=== PATIENT | female | born 2000 ===

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

== ENCOUNTER 2018-05-18 13:35 | Emergency (ER) | payer MEDICAID ==
[2018-05-18 14:08] VITALS: BMI 27.6
[2018-05-18 14:50] LABS: SQUAMOUS EPITHIAL 15 /hpf (0-5); URINE BACTERIA RARE (<OCC); URINE BILIRUBIN NEGATIVE (NEGATIVE); URINE BLOOD MODERATE (NEGATIVE); URINE CLARITY CLOUDY (Clear); URINE COLOR YELLOW (YELLOW); URINE GLUCOSE (UA) NEG (Normal); URINE LEUKOCYTE ESTERASE LARGE Leu/uL (Negative); URINE PROTEIN NEGATIVE (NEGATIVE); URINE UROBILINOGEN 0.2-1.0 mg/dL (0.2-1.0)
[2018-05-18 20:57] VITALS: BP 106/68; PULSE 81; RESP 18; TEMP 98.1
--- NOTE | 2018-05-19 08:34 | OBDCSUM ---
Datetime: 05/18/2018 16:15 Discharge Diagnosis Prov Other: Hematuiria/ UTI
--- NOTE | 2018-05-19 08:34 | OBHP ---
Datetime: 05/18/2018 14:04 IP Adm Impression: , intrauterine ; No Active Labor; Intact Membranes IP Chief Complaint Other: Blood in the Urine IP Admit Plan: Observation/Evaluation Admit Comment, IP Provider: Pt is a 17 yo F IUP @ 29.1 weeks based on LMP of 10/26/17. Pt state s this morning she started having blood in the urine. She noticed specks of blood on the tissue. No h x of hemmorhoids. Denies contractions, LOF. Reports good movement. 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 Lungs: clear to auscultation bilaterally, no wheezing, rales, rhonchi Abdomen: gravid LE: negative for edema -Speculum exam- no vaginal bleeding, no cervical dilation A_P: Pt is a 17 yo F IUP @ 29.1 weeks based on LMP of 10/26/17. Pt states this morning she started having blood in the urine. -Observe in OB ED -Monitor Heart rate -Urinalysis- Large LE, WBC's 11, moderate blood, 12 RBC's -Urine Cx ordered -Cephalexin 500mg 1 tab po TID 7 days # 21 Case discussed with Attending -Lizeth Yao PGY-1 OB Hospitalist note. with PGY1, I saw this patient. Agree with note. MAHNDO Pelvic Type - PN: Adequate Extremities - PN: Normal Abdomen - PN: Normal Back - PN: Not Done Breast - PN: Not Done Lungs - PN: Normal Heart - PN: Normal Thyroid - PN: Not Done Neurologic - PN: Normal HEENT - PN: Normal General - PN: Normal FHR - Baseline A Provider: 150s Membranes, Provider: Intact Pool Provider: Negative IP Hx Assessment: The History has been Reviewed and is Current Vital Signs Provider: Reviewed; Within Normal Limits IP Chief Complaint: Other NICHD Variability Prov Fetus A: Moderate 6-25bpm NICHD Accel Fetus A IP Provider: 10X10 FHR Category Provider Fetus A: Category I NICHD Decel Fetus A IP Provider: None Dilatation, Provider: 0 Genitourinary Exam: Normal DTRs - PN: Not Done
== END 2018-05-18 16:15 | disposition home or self-care (01) ==
LOC: H.EROB2 13:35
DX: O26.92 Pregnancy related conditions, unspecified, second trimester (principal); R31.9 Hematuria, unspecified; Z3A.29 29 weeks gestation of pregnancy

== ENCOUNTER 2018-07-22 18:27 | Emergency (ER) | payer MEDICAID ==
[2018-07-22 19:03] VITALS: BMI 33.3
[2018-07-22 19:45] LABS: BASO % 0.1 % (0.0-2.0); EOS # 0.1 K/uL (0.0-0.7); EOS % 1.2 % (0.0-4.0); HEMOGLOBIN 11.5 g/dL (12.0-16.0); LYMPH % 13.8 % (20.0-40.0); MEAN CELL VOLUME 89.8 fl (81.0-99.0); MEAN CORPUSCULAR HEMOGLOBIN 30.5 pg (27.0-31.0); MEAN PLATELET VOLUME 13.1 fl (7.2-11.7); MONO # 0.5 K/uL (0.0-0.8); MONO % 7.2 % (0.0-10.0); NEUT # 5.7 K/uL (1.8-7.0); NEUT % 77.7 % (50.0-75.0); NRBC % 0.2 % (0.0-0.0); RBC 3.78 Mil/uL (3.80-5.20); RED CELL DISTRIBUTION WIDTH 13.7 % (11.5-14.5); WHITE BLOOD COUNT 7.3 K/uL (4.8-10.8)
[2018-07-22 19:51] LABS: ALB/GLOB RATIO 1.1 (1.0-2.1); ALBUMIN 3.5 g/dL (3.5-5.0); ALT/SGPT 26 U/L (9-52); AST/SGOT 19 U/L (14-36); BLOOD UREA NITROGEN 5 mg/dl (7-17); CALCIUM 9.1 mg/dL (8.4-10.2); GFR NON-AFRICAN AMERICAN > 60; URIC ACID 2.2 mg/Dl (2.2-7.5)
[2018-07-22 19:57] LABS: SQUAMOUS EPITHIAL 33 /hpf (0-5); URINE AMORPHOUS SEDIMENT OCC /ul (<OCC); URINE BACTERIA OCC (<OCC); URINE BILIRUBIN NEGATIVE (NEGATIVE); URINE BLOOD MODERATE (NEGATIVE); URINE CLARITY CLOUDY (Clear); URINE COLOR AMBER (YELLOW); URINE GLUCOSE (UA) NEG (NEGATIVE); URINE LEUKOCYTE ESTERASE MOD Leu/uL (Negative); URINE PROTEIN 30 mg/dL (NEGATIVE); WBC CLUMPS MOD /hpf
[2018-07-23 01:46] VITALS: BP 122/70; PULSE 88; RESP 18; TEMP 98.1; O2SAT 100
== END 2018-07-22 20:50 | disposition home or self-care (01) ==
LOC: H.EROB2 18:27
DX: O14.13 Severe pre-eclampsia, third trimester (principal); Z3A.38 38 weeks gestation of pregnancy

== ENCOUNTER 2018-07-27 14:23 | Emergency (ER) | payer MEDICAID ==
[2018-07-27 12:57] VITALS: BMI 33.3
[2018-07-27 20:26] VITALS: BP 126/74; PULSE 97; TEMP 98.8; O2SAT 100
--- NOTE | 2018-07-28 08:02 | OBDCSUM ---
Datetime: 07/27/2018 14:47 Discharge Diagnosis, Provider: False Labor - Undelivered
--- NOTE | 2018-07-28 08:02 | OBHP ---
Datetime: 07/27/2018 14:30 IP Adm Impression: Term, intrauterine ; No Active Labor IP Admit Plan: Observation/Evaluation; Discharge home Admit Comment, IP Provider: 18 y/o female w/ hx of gestational thrombocytopenia , 39.1 wks based on LMP presents to [facility] w/ c/o vaginal bleeding (menses-like) that began at 12PM today. She noticed bright red blood when wiping after using the bathroom. Patient denies LOF and CTX. Endorses mov ements. States she has not been sexually active in the last 24 hours. Denies headache, dizzienss, N/V /D/CP/SOB/Le edema/urinart symptoms. : CFH PMHx: ADHD, gestational thrombocytopenia, hx of chlamydia PSHx: Upper GI endoscopy Allergies: Kiwi-anaphylaxis, NKDA F/H: Noncontributory SocialHx: Previous H/O alcohol use, Deneis since . Denies smoking/Drugs Physical Exam: General: sitting comfortable in bed, NAD Chest: S1S2 present, RRR Lungs: CTAB Abdomen: soft, NT, gravid Extremities: No pedal edema/calf tenderness SVE: (chaperoned by Dr. Rolon) FT/1cm cervical dilatation. No signs of active bleeding. Assessment and Plan: 18 y/o , 39.1 wks IUP U/S on 06/24 shows placenta in posterior position SVE: FT/1 cm, no signs of active bleeding. No active labor. NST reactive, moderate variabilty, No decels No CTx on toco Patient is stable for discharge to home w/ ER precautions. Patient has f/u appointment scheduled w/ Dr. De Oliveira for next week. OB Hospitalist on-call. With PGY1, i saw and examined this pt. Agree with note. No evidence of VB noted - MAHNDO Pelvic Type - PN: Adequate Extremities - PN: Normal Abdomen - PN: Normal Lungs - PN: Normal Heart - PN: Normal Neurologic - PN: Not Done HEENT - PN: Not Done General - PN: Normal FHR - Baseline A Provider: 150 Contraction Comments Provider: NONE Gestation - Est Wks by US: 39.0 IP Hx Assessment: The History has been Reviewed and is Current EGA AdmitDate IP: 39.1 Vital Signs Provider: Reviewed; Within Normal Limits IP Chief Complaint: Vaginal bleeding NICHD Variability Prov Fetus A: Moderate 6-25bpm NICHD Accel Fetus A IP Provider: 15X15 FHR Category Provider Fetus A: Category I Dilatation, Provider: FT/1cm Genitourinary Exam: Not Done
== END 2018-07-27 15:00 | disposition home or self-care (01) ==
LOC: H.EROB2 14:23
DX: O46.93 Antepartum hemorrhage, unspecified, third trimester (principal); Z3A.39 39 weeks gestation of pregnancy

== ENCOUNTER 2018-08-09 19:34 | Inpatient (IN) | payer MEDICAID ==
[2018-08-09 20:13] VITALS: BMI 34.5
[2018-08-09] MEDS ORDERED: Lactated Ringer's 1,000 ML IV ONE (21:21)
[2018-08-09 22:19] LABS: BASO % 0.2 % (0.0-2.0); EOS # 0.1 K/uL (0.0-0.7); EOS % 0.6 % (0.0-4.0); HEMOGLOBIN 11.6 g/dL (12.0-16.0); LYMPH # 1.3 K/uL (1.0-4.3); LYMPH % 13.4 % (20.0-40.0); MEAN CELL VOLUME 91.1 fl (81.0-99.0); MEAN CORPUSCULAR HEMOGLOBIN 30.6 pg (27.0-31.0); MEAN CORPUSCULAR HGB CONC 33.6 g/dL (33.0-37.0); MEAN PLATELET VOLUME 13.7 fl (7.2-11.7); MONO # 0.7 K/uL (0.0-0.8); NEUT # 7.8 K/uL (1.8-7.0); NEUT % 78.8 % (50.0-75.0); NRBC % 0.1 % (0.0-0.0); RBC 3.8 Mil/uL (3.80-5.20); RED CELL DISTRIBUTION WIDTH 13.5 % (11.5-14.5); WHITE BLOOD COUNT 9.9 K/uL (4.8-10.8)
[2018-08-10] MEDS ORDERED: Albuterol-Ipratrop 3 mg / 0.5 (3 ml) UD ONE ×2 (02:07→03:08)
[2018-08-10] MEDS: Lactated Ringer's 1,000 ML IV SCH ×3 (08:40→22:57)
--- NOTE | 2018-08-10 09:01 | OBADHP ---
Datetime: 08/09/2018 21:02 Admit Comment, IP Provider: 18 y/o female w/ hx of gestational thrombocytopenia , 41.0 wks based on LMP presents to L_D for IOL. Patient denies LOF, VB. Reports irregualr CTx Q5-10 mins. Endorses f etal movements. Denies headache, dizzienss, N/V/D/CP/SOB/Le edema/urinart symptoms. : [facility], Dr. Lopez PMHx: ADHD, gestational thrombocytopenia, hx of chlamydia(Treated) PSHx: Upper GI endoscopy Allergies: Kiwi-anaphylaxis, NKDA F/H: Noncontributory SocialHx: Previous H/O alcohol use, Deneis since . Denies smoking/Drugs Physical Exam: General: sitting comfortable in bed, NAD Chest: S1S2 present, RRR Lungs: CTAB Abdomen: soft, NT, gravid Extremities: No pedal edema/calf tenderness SVE: (chaperoned by Carmen) 1cm/long/high. No signs of active bleeding. Assessment and Plan: 18 y/o , 41.0 wks IUP admitted for IOL SVE: 1 cm/long/, no signs of active bleeding. No active labor. NST reactive, moderate variabilty, No decels No CTx on toco Cytotec 25 mg followed by 50 mg Q4hr untill CTx are 2-3 mins apart or active labor LR 999 and 125 ml/hr Anesthesia consult Monitor for cervical changes. Case discussed with Dr. Gonzales Adames, PGY1 OB Hospitalist application coordinator. Pt seen and examined by me. Agree with note. Condition, IOL, labor, pain management, delivey and post discussed. Her questoins answered. MAHNDO Pelvic Type - PN: Not Done Extremities - PN: Normal Abdomen - PN: Normal Back - PN: Normal Breast - PN: Normal Lungs - PN: Normal Heart - PN: Normal Thyroid - PN: Not Done Neurologic - PN: Normal HEENT - PN: Normal General - PN: Normal Presentation-Admit: Vertex FHR - Baseline A Provider: 130 Membranes, Provider: Intact Contraction Comments Provider: None IP Hx Assessment: The History has been Reviewed and is Current Vital Signs Provider: Reviewed; Within Normal Limits IP Chief Complaint: Scheduled induction of labor NICHD Variability Prov Fetus A: Moderate 6-25bpm NICHD Accel Fetus A IP Provider: 15X15 FHR Category Provider Fetus A: Category I NICHD Decel Fetus A IP Provider: None Dilatation, Provider: 1 Effacement, Provider: long Station, Provider: high Genitourinary Exam: Normal DTRs - PN: Not Done EGA AdmitDate IP: 41.0 IP Adm Impression: Term, intrauterine ; No Active Labor; Intact Membranes IP Admit Plan: Admit to unit; Initiate labor induction protocol Datetime: 07/27/2018 14:30 Gestation - Est Wks by US: 39.0 Datetime: 05/18/2018 14:04 IP Chief Complaint Other: Blood in the Urine Pool Provider: Negative
--- NOTE | 2018-08-10 11:36 | OBPN ---
Datetime: 08/10/2018 09:51 IP Progress Impression: Normal progression of labor IP Procedures: Sterile Vag Exam IP Progress Plan: Continue present management FHR - Baseline A Provider: 150 Gestation - Est Wks by US: 41.1 IP Progress Note Comment: S: Patient complaining of ctx pain 7-8/10 in severity. Endorses move ments. No other complaints at this time. O: SVE (Chaperoned by Nurse Joanne): /-2 A :18 y/o female , 41.1 wks IUP admitted for IOL c/o pain P: Discussed R/B/A of pain management at this time. Patient opted for Nitrous Oxide. Will order. C ont present management Case discussed w/ Dr. Debby Batres, pgyi Addendum by Dr. Guardado: I have evaluated the patient independently and I agree with the above. The patient was examined again by myself, 1-2/thick/high. Patient was using the Nitrous oxide for pain ma nagement. FHR = 150 mod fátima, +accels, no decels. TOCO = ctnxing q 2-5 mins. Continue augmentation wit h cytotec. CEFM and TOCO - re-evaluate as needed Vital Signs Provider: Reviewed; Within Normal Limits NICHD Variability Prov Fetus A: Moderate 6-25bpm Dilatation, Provider: 2 Effacement, Provider: 50 Station, Provider: -2 NICHD Decel Fetus A IP Provider: None Datetime: 08/09/2018 21:02 Membranes, Provider: Intact Contraction Comments Provider: None Presentation-Admit: Vertex NICHD Accel Fetus A IP Provider: 15X15 FHR Category Provider Fetus A: Category I Datetime: 05/18/2018 14:04 Pool Provider: Negative
[2018-08-10] MEDS ORDERED: Oxytocin 30 UNIT 30 UNITS/500 ML BAG IV ONE ×2 (17:40→20:15)
--- NOTE | 2018-08-10 17:58 | OBPN ---
Datetime: 08/10/2018 17:30 IP Informed Consent Obtain: Vaginal Delivery IP Procedures: Sterile Vag Exam IP Progress Plan: Continue present management Contraction Comments Provider: q 2 - 3 mins FHR - Baseline A Provider: 145 IP Progress Note Comment: Patient evaluated, feeling increased pain with contractions. Patient offer ed all pain management options, desires to continue with nitrous oxide now. VE = 1-2/50/-2, Cooks balloon placed, 80mL/80mL FHR = 145 mod fátima, no accels, no decls TOCO = dario q 2-4 mins A/P 1. Cooks balloon placed successfully. Will start Pitocin for augmentation 2. Patient to continue nitrous oxide at this point for pain management 3. CEFM and TOCO NICHD Accel Fetus A IP Provider: 15X15 NICHD Variability Prov Fetus A: Moderate 6-25bpm Dilatation, Provider: 1-2 Effacement, Provider: 50 Station, Provider: -2
--- NOTE | 2018-08-10 19:53 | OBPN ---
Datetime: 08/10/2018 19:30 IP Progress Impression: Normal progression of labor IP Informed Consent Obtain: Vaginal Delivery IP Procedures: Sterile Vag Exam IP Progress Plan: Continue present management Membranes, Provider: Ruptured Contraction Comments Provider: q 2 - 3 mins FHR - Baseline A Provider: 150 IP Progress Note Comment: Patient evaluated, Cooks balloon reduced, AROM, blood tinged VE = 5-6/50/-2, AROM FHR = 150 mod fátima, +accels, early decelerations, some variables TOCO = ctxning q 2-4 mins A/p 1. Continue augmentation with pitocin 2. Patient offered other pain management and declined at this poitn 3. CEFM and TOCO Vital Signs Provider: Reviewed; Within Normal Limits NICHD Variability Prov Fetus A: Moderate 6-25bpm Dilatation, Provider: 5-6 Effacement, Provider: 50 Station, Provider: -2 NICHD Decel Fetus A IP Provider: Early; Variable
[2018-08-10] MEDS ORDERED: OXYTOCIN/0.9 % NS 20 UNIT/1,000 ML BAG IV ONE (20:15)
--- NOTE | 2018-08-10 20:46 | OBPN ---
Datetime: 08/10/2018 20:41 IP Informed Consent Obtain: Vaginal Delivery IP Procedures: Sterile Vag Exam; Amnio Infusion Contraction Comments Provider: q 2-3 mins FHR - Baseline A Provider: 150 IP Progress Note Comment: Patient feeling increased pain - offered epidural and anesthesia was prese nt to answer questions. patient again refused pain medication VE=5-6/50/-2 FHR = 150 mod fátima, +repetative variables TOCO = q 2 mins A/P 1. Amnioinfusion was started for Cat-2 tracing. 2. Patient does not want pain medication at this time 3. CEFM and TOCO Vital Signs Provider: Reviewed; Within Normal Limits NICHD Variability Prov Fetus A: Moderate 6-25bpm Dilatation, Provider: 5-6 Effacement, Provider: 50 Station, Provider: -2 NICHD Decel Fetus A IP Provider: Variable
[2018-08-10] MEDS ORDERED: Fentanyl/Bupivacaine HCl 250 ML EPI ONE (20:54)
--- NOTE | 2018-08-10 21:47 | OBPN ---
Datetime: 08/10/2018 21:44 IP Informed Consent Obtain: Vaginal Delivery IP Procedures: Sterile Vag Exam; Epidural Placement IP Progress Plan: Continue present management Contraction Comments Provider: q 2mins FHR - Baseline A Provider: 150 IP Progress Note Comment: Patient evaluated, feeling increased pain with contractions, epidural plac ed and patient feeling much better VE=/-1 FHR = 150 mod fátima, no accels, variables with contractions TOCO = ctxning q 2 mins A/P 1. Patient s/p epidural and feeling much more comfortable 2. Amnioinfusion started for variables, will continue to watch for worsening Cat-2 tracing or for protracted/arrest of labor 3. CEFM and TOCO Vital Signs Provider: Reviewed; Within Normal Limits NICHD Variability Prov Fetus A: Moderate 6-25bpm Dilatation, Provider: 6 Effacement, Provider: 50 Station, Provider: -1 NICHD Decel Fetus A IP Provider: Variable
--- NOTE | 2018-08-10 23:05 | OBPN ---
Datetime: 08/10/2018 23:01 IP Procedures: Sterile Vag Exam Membranes, Provider: Ruptured FHR - Baseline A Provider: 150 IP Progress Note Comment: Patient evaluated, discussed plan of care with patient. Patient has had on /off moderate variability with variables that are at lowest 60 bpm with return to baseline and small variables. Patient has had consistant moderate variability and after variable a return to baseline. P atient continues to be rescucitated, lateral position, O2 mask and 2 doses of terbutaline. TOCO = ctx ing q 2 - 5 mins. discussed with patient if cat-2 tracing continues or worsens, or unable to restart Pitocin secondary to non-reassuring status, will advise . Consent reviewed and signed with p atient. Will continue to CEFM and TOCO. All questions answered Vital Signs Provider: Reviewed; Within Normal Limits NICHBlaine Variability Prov Fetus A: Moderate 6-25bpm Dilatation, Provider: 6 Effacement, Provider: 60 Station, Provider: -1 NICHD Decel Fetus A IP Provider: Variable
[2018-08-10] MEDS ORDERED: ceFAZolin 2 GM in Sodium Chloride 0.9% 100 ML IVPB ONE (23:15)
[2018-08-10] MEDS ORDERED: Azithromycin 500 MG in Sodium Chloride 0.9% 250 ML IVPB STA (23:15)
--- NOTE | 2018-08-10 23:24 | OBPN ---
Datetime: 08/10/2018 23:18 IP Progress Impression: Non-reassuring heart rate IP Informed Consent Obtain: Section Delivery FHR - Baseline A Provider: 150 IP Progress Note Comment: Patient advised to proceed with for non-reassuring status. Zonia martinez continues to have a Cat-2 delivery and has not had an adequate period of rescucitation after 2 dos es of terbutaline and multiple methods of rescucitation. Patient advised to proceed with samson. Patient on the phone with FOB and currently refusing . Discussed with patient that f or optimum outcome with current heart rate status, is advised. Awaiting patient decision. A zithromycin and Ancef given, anesthesia notified Vital Signs Provider: Reviewed; Within Normal Limits NICHD Variability Prov Fetus A: Moderate 6-25bpm Dilatation, Provider: 6 Effacement, Provider: 60 Station, Provider: -1 NICHD Decel Fetus A IP Provider: Variable
[2018-08-10] MEDS ORDERED: Lidocaine 2% PF (10 ml) Amp ONE (23:39)
[2018-08-10] MEDS ORDERED: Propofol 10 mg/ml Inj (20 ML) ONE (23:51)
[2018-08-11] MEDS ORDERED: Morphine 1 mg/ml preservative-free Inj(Duramorph) ONE (00:06)
[2018-08-11] MEDS ORDERED: Oxycodone/Acetaminophen 5/325 mg Tab PO PRN ×3 (00:29→03:43)
--- NOTE | 2018-08-11 00:37 | OBDS ---
MATERNAL INFORMATION Provider Comments: Surgeon: Dr. Guardado Butcher: Dr. Zacarias Lucero PGY-1 Pre-op Dx: Cat-2 tracing, mod fátima with deep variables remote from delivery and not improving with rescucitation Surgery: LTCS Post-op: same Findings: live male infant, 6lbs 13 oz, cephalic, 9/9, grossly nml tubes/ovaries/placenta/uterus Anesthesia: epidural by dr. Perez UO: 100mL Total Input: 1000mL EBL: 800mL Complications: none Condition: stable Pathology: cord blood, cord ph LABOR SUMMARY EDC: 08/02/2018 00:00 No. Babies in Womb: 1 LABOR INFORMATION Cervical Ripening Agents: Cytotec @ 50 Group B Beta Strep: Negative MEMBRANES Membranes Rupture Method: Artificial Amniotic Fluid Color: Bloody Amniotic Fluid Amount: Small STAGES OF LABOR Stage 3 hrs: 0 Stage 3 min: 1 BABY A INFORMATION Infant Delivery Date/Time: 08/10/2018 23:57 Method of Delivery: Born in Route : No : N/A Forceps: N/A Vacuum Extraction: N/A Shoulder Dystocia : No SHOULDER DYSTOCIA BABY A Infant Delivery Date/Time: 08/10/2018 23:57 PRESENTATION/POSITION BABY A Presentation: Cephalic Cephalic Presentation: Vertex PLACENTA INFORMATION BABY A Placenta Delivery Time : 08/10/2018 23:58 Placenta Method of Delivery: Spontaneous Placenta Status: Delivered SCORES BABY A Heart Rate 1 min: >100 bpm Resp Effort 1 min: Good Cry Reflex Irritability 1 min: Cough or Sneeze or Pulls Away Muscle Tone 1 min: Active Motion Color 1 min: Body [place], Extremities Blue Resuscitation Effort 1 min: Tactile Stimulation SCORE 1 MIN: 9 Heart Rate 5 min: >100 bpm Resp Effort 5 min: Good Cry Reflex Irritability 5 min: Cough or Sneeze or Pulls Away Muscle Tone 5 min: Active Motion Color 5 min: Body [place], Extremities Blue Resuscitation Effort 5 min: N/A SCORE 5 MIN: 9 INFORMATION BABY A Gestational Age at Delivery: 41.0 Gestational Status: Term Infant Outcome : Liveborn Infant Condition : Stable Infant Sex: Male IDENTIFICATION/MEDS BABY A ID Band Number: [id number] WEIGHT/LENGTH BABY A Birthweight (gms): 3095 Infant Weight (lb): 6 Weight (oz): 13 CORD INFORMATION BABY A No. Cord Vessels: 3 Nuchal Cord : Around Neck x1, Loose Cord pH Baby Venous: 7.25 Cord Blood Taken: Yes Infant Suction: Mouth; Nose
[2018-08-11] MEDS ORDERED: DiphenhydrAMINE 50 mg/ml Inj IVP PRN ×2 (00:59→03:43)
[2018-08-11 06:09] LABS: HEMOGLOBIN 10.1 g/dL (12.0-16.0); MEAN CELL VOLUME 90.6 fl (81.0-99.0); MEAN CORPUSCULAR HEMOGLOBIN 30.1 pg (27.0-31.0); MEAN CORPUSCULAR HGB CONC 33.3 g/dL (33.0-37.0); RBC 3.36 Mil/uL (3.80-5.20); RED CELL DISTRIBUTION WIDTH 13.7 % (11.5-14.5); WHITE BLOOD COUNT 13.6 K/uL (4.8-10.8)
--- NOTE | 2018-08-11 08:43 | OP ---
PROCEDURE DATE: 08/11/2018 PREOPERATIVE DIAGNOSIS: Category 2 heart tracing, moderate variability with repetitive variables without improvement despite resuscitation, remote for delivery. POSTOPERATIVE DIAGNOSIS: Category 2 heart tracing, moderate variability with repetitive variables without improvement despite resuscitation, remote for delivery. PROCEDURE: Low transverse section. SURGEON: Diane Guardado MD. BRICKLAYER APPRENTICE: Maverick Tubbs MD, and Dr. Adames, PGY-1. FINDINGS: Live male infant, 6 pounds and 13 ounces, cephalic, clear fluid, 9 and 9 Apgars. Grossly normal tubes, ovaries, placenta, and uterus. Three-vessel cord. ANESTHESIA: Epidural. ANESTHESIOLOGIST: Dr. Perez. URINE OUTPUT: 100 mL. TOTAL FLUID INPUT: 1000 mL. ESTIMATED BLOOD LOSS: 800 mL. COMPLICATIONS: None. CONDITION: Stable. PATHOLOGY SPECIMEN: Cord blood and cord pH. INDICATIONS: This is a 18-year-old G1, P0 at 41 plus weeks who presented to labor and delivery for induction of her post-term. The patient progressed to 6 cm dilated with misoprostol, Perkins bulb, Pitocin and ruptured membranes. After rupture of membranes, the patient presented with a category 2 heart tracing, moderate variability with repetitive deep variables. Amnio infusion was started for a few hours, multiple methods of resuscitation such as oxygen mask, stopping the Pitocin, lateral positioning, and multiple doses of terbutaline were given in efforts to improve heart tracing. There was no improvement in category 2 status, and the patient was remote for delivery, was unable to restart Pitocin for augmentation. At this point, it was advised to the patient to proceed with delivery due to heart status, and being remote for delivery. The patient verbalized understanding. Consent was signed. The patient was advised of risks and benefits of procedure including risk of bleeding, infection, damage to surrounding organs such as bowel, bladder, ureter, and uterus. The patient verbalized understanding and signed informed consent. DESCRIPTION OF PROCEDURE: The patient was taken to the OR. Ancef and azithromycin were given preoperatively and SCDs were placed bilaterally. The patient was prepped and draped in a normal sterile fashion in dorsal supine position with a leftward tilt. Pfannenstiel skin incision was made through the skin and carried through the layer of fascia with skin and the Bovie. The fascia was incised in the midline. The incision was extended laterally with the Bovie. Gamal clamps were used to tent up the inferior aspect of this incision. We dissected off the underlying pyramidalis muscles with the Bovie. In a similar fashion, we tented up the superior aspect of this incision, which we dissected off the underlying rectus abdominis muscles with the Bovie. Muscles were bluntly in the midline. Incision extended superiorly and inferiorly with good visualization of all underlying organs. Bladder blade was inserted. The lower uterine segment was identified. Vesicouterine peritoneum was grasped with pickups and the bladder flap was created with Metzenbaum scissors. The lower uterine segment was incised in a transverse fashion. Uterine cavity was entered. Clear fluid was noted. was delivered in cephalic presentation followed by shoulders and rest of infant atraumatically. Cord was clamped and cut. Infant was handed off to awaiting pediatric team. Mouth and nose were suctioned. Cord pH was obtained. Cord blood was obtained. Placenta was extracted manually. Uterus exteriorized, cleared of all clots. Uterine incision was repaired with an 0 Vicryl stitch and second imbricating layer with an 0 Monocryl stitch. Hysterotomy site appeared to be hemostatic. Uterus was returned to the abdomen. Gutters were cleared of all clots. There was an area in the hysterotomy site that was reinforced with 0 Vicryl stitch and again the incision appeared to be hemostatic. The peritoneum was closed with 2-0 Monocryl. Muscle was reapproximated with the same stitch. Fascia was closed with 0 Vicryl stitch. Subcutaneous fat was reapproximated with plain gut sutures. All bleeders were cauterized with the Bovie. The skin was closed with 4-0 Monocryl. Sponge, lap, and needle counts were correct x4. The patient was taken to recovery room in stable condition. There were no other complications. Dr. Tubbs was present and aided in all aspects of delivery including delivery of infant, retraction, placing sutures, and cutting sutures. Diane Guardado MD
[2018-08-11] MEDS ORDERED: Multivitamin With Minerals Tab PO SCH (09:00)
[2018-08-11] MEDS: Multivitamin With Minerals Tab PO SCH (09:02)
--- NOTE | 2018-08-11 09:57 | OBPPN ---
Datetime: 08/11/2018 07:03 PP Pain Prov: Within normal limits PP Nausea Prov: Denies PP Flatus Prov: No PP BM Prov: No PP Breasts Prov: Not Done PP Heart Prov: Normal PP Lungs Prov: Normal PP Abdomen/Uterus Prov: Normal PP Lochia Prov: Not Done PP Vulva/Perineum Prov: Not Done PP CVA Tenderness Prov: Normal PP Extremities Prov: Normal PP Impression Prov: Normal progression PP Plan Prov: Continue present management; consult PP Progress Note Prov: 18y/o , 41.0 wks S/P on 08/10/18 for Recurrent decels, Category II tracings. POD1 Patient seen and evaluated at bedside. Reports abdominal pain which is well controlled with pain m edications. Perkins and dressing present. Formula feeding. Tolerating regular diet well. Lochia similar to menses. Not passing flatus or having BM. Denies fever, chills, nausea, vomiting, diarrhea, CP, SO B. O: Vitally stable GEN: Patient is comfortable. In no acute distress. Cardio: S1S2, no murmurs, gallops or rubs. Lungs: clear air entry sounds b/l, no wheezing Abdomen: BS+, appropriate TTP. Dressing present. Uterus is firm and at the level of the umbilicus . EXT: No edema, calves non-tender to palpation Assessment/Plan: 18y/o , 41.0 wks S/P on 08/10/18. POD1. Pt remains afebrile, tolerat ing pain with medication, doing well. OOB with caution - SCDs for DVT prophylaxis, encouraged ambulating - Percocet 5/325mg, and Motrin 600mg prn for pain. - Senokot PO HS for constipation - Simethicone 80 mg Q6 hr - Continue to encourage - f/u CBC post op: Pending - Anticipated D/C on 08/13/18 ---Deonte Adames MD PGY-1 --- Génesis PGY 2 Vital Signs Provider PP: Reviewed; Within Normal Limits
[2018-08-11] MEDS: Oxycodone/Acetaminophen 5/325 mg Tab PO PRN ×2 (12:53→19:15)
[2018-08-12] MEDS: Multivitamin With Minerals Tab PO SCH (08:44)
[2018-08-12] MEDS ORDERED: Measles, Mumps, and Rubella 0.5 ML VIAL SC ONE (10:00)
--- NOTE | 2018-08-12 10:17 | OBPPN ---
Datetime: 08/12/2018 06:59 PP Pain Prov: Within normal limits PP Nausea Prov: Denies PP Flatus Prov: Yes PP BM Prov: No PP Breasts Prov: Not Done PP Heart Prov: Normal PP Lungs Prov: Normal PP Abdomen/Uterus Prov: Normal PP Lochia Prov: Not Done PP Vulva/Perineum Prov: Not Done PP CVA Tenderness Prov: Normal PP Extremities Prov: Normal PP C/S Incision Prov: Not Applicable PP Progress Prov: Normal PP Impression Prov: Normal progression PP Plan Prov: Continue present management; consult PP Progress Note Prov: 18y/o , 41.0 wks S/P on 08/10/18 for Recurrent decels, Category II tracings. POD2 Patient seen and evaluated at bedside. Reports abdominal pain which is well controlled with pain m edications. Formula feeding. Tolerating regular diet well. Lochia similar to menses. Passing flatus b ut no BM. Denies fever, chills, nausea, vomiting, diarrhea, CP, SOB. O: Vitally stable GEN: Patient is comfortable. In no acute distress. Cardio: S1S2, no murmurs, gallops or rubs. Lungs: clear air entry sounds b/l, no wheezing Abdomen: BS+, appropriate TTP. Dressing removed, Incision C/D/I. Uterus is firm and at the level of the umbilicus. EXT: No edema, calves non-tender to palpation Assessment/Plan: 18y/o , 41.0 wks S/P on 08/10/18. POD2. Pt remains afebrile, tolerat ing pain with medication, doing well. OOB with caution - SCDs for DVT prophylaxis, encouraged ambulating - Percocet 5/325mg, and Motrin 600mg prn for pain. - Senokot for constipation - Simethicone 80 mg Q6 hr - Continue to encourage - f/u CBC post op: 10.1/30.4 - Anticipated D/C on 08/13/18 --- Deonte Adames MD PGY-1 -- Génesis PGY2 Patient seen and examined by me this am. Agree with above resident note. --Dr. Das Vital Signs Provider PP: Reviewed; Within Normal Limits
[2018-08-13] MEDS: Oxycodone/Acetaminophen 5/325 mg Tab PO PRN (07:48)
[2018-08-13] MEDS: Multivitamin With Minerals Tab PO SCH (08:09)
--- NOTE | 2018-08-13 09:26 | OBPPN ---
Datetime: 08/13/2018 05:07 PP Pain Prov: Within normal limits PP Nausea Prov: Denies PP Flatus Prov: Yes PP BM Prov: Yes PP Breasts Prov: Not Done PP Heart Prov: Normal PP Lungs Prov: Normal PP Abdomen/Uterus Prov: Normal PP Lochia Prov: Not Done PP Vulva/Perineum Prov: Not Done PP CVA Tenderness Prov: Normal PP Extremities Prov: Normal PP C/S Incision Prov: Normal PP Progress Prov: Normal PP Impression Prov: Normal progression PP Plan Prov: Continue present management PP Progress Note Prov: 18y/o , 41.0 wks S/P on 08/10/18 for Recurrent decels, Category II tracings. POD3 Patient seen and evaluated at bedside. Reports abdominal pain which is well controlled with pain m edications. Formula feeding and trying . Tolerating regular diet well. Lochia similar to menses. Passing flatus and had BM today. Denies fever, chills, nausea, vomiting, diarrhea, CP, SOB. O: Vitally stable GEN: Patient is comfortable. In no acute distress. Cardio: S1S2, no murmurs, gallops or rubs. Lungs: clear air entry sounds b/l, no wheezing Abdomen: BS+, appropriate TTP. Incision C/D/I. Uterus is firm and at the level of the umbilicus. EXT: No edema, calves non-tender to palpation Assessment/Plan: 18y/o , 41.0 wks S/P on 08/10/18. POD3. Pt remains afebrile, tolerat ing pain with medication, doing well. OOB with caution - SCDs for DVT prophylaxis, encouraged ambulating - Percocet 5/325mg, and Motrin 600mg prn for pain. - Senokot PO HS for constipation - Simethicone 80 mg Q6 hr - Continue to encourage - f/u CBC post op: 10.30.4 - MMR vaccine today - Anticipated D/C on 08/13/18 --- Deonte Adames MD PGY-1 Attending addendum: I saw and examined the patient at bedside myself this morning. I reviewed the resident note above and agree with findings and management. DC home today. Davina Jones MD Vital Signs Provider PP: Reviewed; Within Normal Limits
--- NOTE | 2018-08-13 09:33 | OBDCSUM ---
Datetime: 08/13/2018 05:09 Discharged to, Provider: Home Follow up at, Provider: [facility], Dr. Lopez Disch Instr Activity: Normal activity; May Shower Disch Instr Diet: Regular Discharge Instructions, Provider: Routine instructions given Discharge Diagnosis, Provider: Term Delivered Follow up in weeks, Provider: 08/17/18, 08/25/18 Disch Referrals: None Contraception discussed, Prov: Yes Disch Activity Restrictions: No exercising; No sexual activity; Nothing in vagina - [place], caitlyn ocampo Discharge Comment, Provider: Discharge Summary DOA: 08/09/2018 EGA: 41.1 wks Diagnosis: S/P Primary C- section due to nonreassuring Category II FHR. Summary of : 18y/o , 41.1 wks S/P Primary C- section due to nonreassuring Category II FHR L_D summary: Pt is s/p C- section. Pain was well controlled with pain meds. No nausea. Tolerated r egular diet well. Passing flatus, voiding well w/o difficulties. Breast feeding without difficulty. L ochia is similar to menses volume. DOL: 08/09/18 @23:57 NB: Male : 9 Weight: 3095 gm Lochia= menses, mild pain, controlled with medications Blood type: A +, Antibody Neg CBC pp: 10.08/11.4 Discharge Date: 08/13/2018 Time 10:00 AM Discharge Instructions: -Encourage -Encourage ambulation -Ibuprofen for mild-moderate pain and Percocet for severe pain PRN -Continue vitamins at home - ED precautions: If excessive bleeding, pain that does not get relief, fever >100.4, palpitations , SOB, CP or other concerning symptom go to the ED. - PT was urged if feeling sad, mood swing, depression, neglect of baby, suicidal thoughts, homicid al thoughts go to ER or call 911 for help - Pt should go to her Primary care doctor if have difficulty with breast feeding - F/U at [facility] on 08/17/18 for wound check and 08/25/18 for checkup. -- Deonte Adames MD, PGY-1 Attending addendum: I saw and examined the patient at bedside myself this morning. I reviewed the resident note above and agree with findings and management. DC home today. MMR vaccine to be given at [facility] Davina Jones MD Contraception after Delivery: Undecided
[2018-08-13] MEDS ORDERED: Measles, Mumps, and Rubella 0.5 ML VIAL SC ONE (10:00)
[2018-08-13 18:13] VITALS: BP 102/47; PULSE 75; RESP 20; TEMP 98.7; O2SAT 97
== END 2018-08-13 11:13 | disposition home or self-care (01) | DRG 371 ==
LOC: H.EROB2 19:34 → H.L&D 21:21 → H.OB/GYN 08-11 03:28
PROVIDERS: ADMIT Obstetrics & Gynecology; ATTEND Obstetrics & Gynecology
PROC: 10D00Z1 Extraction of Products of Conception, Low, Open Approach (ICD-10-PCS; principal; 2018-08-09)
PROC: 4A1HXCZ Monitoring of Products of Conception, Cardiac Rate, External Approach (ICD-10-PCS; 2018-08-09)
PROC: 3E0234Z Introduction of Serum, Toxoid and Vaccine into Muscle, Percutaneous Approach (ICD-10-PCS; 2018-08-13)
DX: O48.0 Post-term pregnancy (principal); O69.81X0 Labor and delivery complicated by cord around neck, without compression, not applicable or unspecified; O76 Abnormality in fetal heart rate and rhythm complicating labor and delivery; O99.344 Other mental disorders complicating childbirth; F90.9 Attention-deficit hyperactivity disorder, unspecified type; Z37.0 Single live birth; Z3A.41 41 weeks gestation of pregnancy; Z23 Encounter for immunization